=== PATIENT | male | born 1965 | race African-American/Black ===

== ENCOUNTER 2016-09-07 14:49 | Inpatient (IN) ==
[2016-09-07] MEDS ORDERED: SODIUM CHLORIDE 0.9% 1,000 ML IV STA ×2 (15:08→15:10)
[2016-09-07] MEDS ORDERED: HYDROmorphone 2 MG/1 ML VIAL IV STA (15:08)
[2016-09-07] MEDS ORDERED: DIPH/TET/ACEL PERT BOOSTER VACCINE 0.5 ML VIAL IM ONE ×2 (15:08→15:36)
[2016-09-07] MEDS ORDERED: ONDANSETRON 4 MG/2 ML VIAL IV STA (15:08)
[2016-09-07] MEDS ORDERED: cefTRIAXone 1,000 MG in SODIUM CHLORIDE 0.9% 100 ML IV STA (15:10)
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
[2016-09-07] MEDS ORDERED: cefTRIAXone 1,000 MG VIAL ONE (15:35)
[2016-09-07] MEDS ORDERED: ONDANSETRON 4 MG/2 ML VIAL ONE ×2 (15:35→17:30)
[2016-09-07] MEDS ORDERED: HYDROmorphone 2 MG/1 ML VIAL ONE (15:36)
--- NOTE | 2016-09-07 15:37 | CT Report ---
CT soft tissue neck w con Indication: Laceration. CT NECK WITH CONTRAST DLP: 168 mGy*cm. One or more of the following dose reduction techniques was used: Automated exposure control, adjustment of the mA and/or kV according the patient size, or use of iterative reconstruction techniques. Comparison: None Technique: Axial CT images of the neck were obtained with IV contrast. Omnipaque 350, none cc. Findings: Laceration along the left jawline is present. No active extravasation into the lacerated region identified although soft tissue swelling and subcutaneous emphysema is present. Unable to exclude involvement of left submandibular gland within the injury. Laceration appears superficial of the left jugular vein and external carotid branches. No radiopaque debris identified. Airways widely patent. Vocal cords are thickened and symmetric. Epiglottis is thin. Visualized sinuses and mastoid air cells are clear. Poor dentition noted with no teeth present. No fracture the facial bones or mandible. Temporal mandibular joint alignment is normal. Pulmonary apices appear clear. No superior mediastinal lymphadenopathy. Aortic arch is intact, bovine arch noted. Thyroid is homogeneous. Impression: Superficial soft tissue injury along the left jawline without extravasation identified. No underlying fracture. PROCEDURE INTERPRETED AT [facility] DEPARTMENT OF RADIOLOGY Final Report Signed by: Slick Jerry M.D.
[2016-09-07 15:38] LABS: Basophils % 0.8 % (0.0-0.8); Eosinophils % 0.3 % (0.00-10.9); Hematocrit 28.3 VOL% (42.0-52.0); Hemoglobin 9.9 GM/DL (14.0-18.0); Immature Granulocytes % 0.5 %; Immature Granulocytes Absolute 0.02 #; Lymphocytes # 1.9 10*3/uL (1.4-4.0); Lymphocytes % 48.6 % (21.2-54.2); Mean Corpuscular Hemoglobin 25 PG (27-34); Mean Corpuscular Volume 72.4 FL (87-102); Mean Platelet Volume 9.8 FL (9.6-12.0); Monocytes # 0.5 10*3/uL (0.11-0.8); Monocytes % 12.7 % (1.7-12.7); Neutrophils # 1.5 10*3/uL (1.4-7.4); Neutrophils % 37.1 % (38.7-73.9); Platelet Count 162 T/CUMM (130-400); Red Blood Count 3.91 MC/CUMM (3.8-5.5); Red Cell Distribution Width 14.3 % (9.3-17.3); White Blood Count 3.9 T/CUMM (4-12)
[2016-09-07 15:52] LABS: Albumin 3.8 G/DL (3.4-5.0); Bilirubin,Total 0.6 MG/DL (0.2-1.0); Calcium 9.1 MG/DL (8.5-10.1); Osmolality,Calculated 261.5 MOS/KG (273-304); Potassium 3.9 MMOL/L (3.5-5.1); Total Protein 7.3 G/DL (6.4-8.3)
[2016-09-07 16:40] LABS: Hypochromasia 1+; Lymphocytes 60 % (20-55); Metamyelocytes 1 %; Platelet Estimate Adequate; Polychromasia Few; Segmented Neutrophils 36 % (50-85); Total Cells Counted 100
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
[2016-09-07 17:04] LABS: Apearance,Urine CLEAR (Clear); Bacteria,Urine Occasional /HPF (Few); Bilirubin,Urine Negative (Negative); Blood, Urine Negative (Negative); Glucose,Urine (UA) Negative (Negative); Ketones,Urine Negative (Negative); Mucus,Urine Occasional /LPF (Occasional); Nitrite,Urine Negative (Negative); Protein,Urine Negative; Urine Color Straw (Yellow); Urine Specific Gravity 1.013 (1.001-1.035); Urine Urobilinogen < 2.0 EU/DL (0.2-1.0); WBC,Urine <1 /HPF (0-6)
[2016-09-07 17:22] LABS: Barbiturates Screen,Urine Negative (Negative); Benzodiazepines Screen,Urine Negative (Negative); Cannabinoid Screen,Urine Positive (Negative); Opiate Screen,Urine Negative (Negative); Phencyclidine Screen,Urine Negative (Negative)
[2016-09-07] MEDS ORDERED: LIDOCAINE 1%/EPI INJ 20 ML VIAL ONE (17:25)
[2016-09-07] MEDS ORDERED: ROCURONIUM 100 MG/10 ML VIAL IV ONE (17:30)
[2016-09-07] MEDS ORDERED: PHENYLEPHRINE 1 MG/10 ML SYRINGE IV ONE (17:30)
[2016-09-07] MEDS ORDERED: LIDOCAINE 1% 5 ML VIAL ONE (17:30)
[2016-09-07] MEDS ORDERED: PROPOFOL 200 MG/20 ML VIAL IV ONE (17:30)
[2016-09-07] MEDS ORDERED: SUCCINYLCHOLINE 200 MG/10 ML VIAL ONE (17:30)
[2016-09-07] MEDS ORDERED: MUPIROCIN 2% OINT 22 GM TUBE TOP ONE (18:23)
--- NOTE | 2016-09-07 18:44 | EKG Report ---
Stationary ECG Study [facility] ER Test Date: 09/07/2016 4:51:25 PM Pat Name: RODERICK BERGER Department: Room: EDAZIT Gender: M Detail Assembler: : 1965 Requested by: Osei Mercado Order Number: [id number] Reading MD: TOM SYKES Intervals [place] Rate: 65 P: 91 OK: 143 QRS: 91 QRSD: 95 T: 85 QT: 426 QTc: 438 Interpretive Statements SINUS RHYTHM BORDERLINE RIGHT AXIS DEVIATION Electronically Signed On 09-07-16 20:34:25 CDT by TOM SYKES [email or web address]
[2016-09-07] MEDS ORDERED: ACETAMINOPHEN 500 MG TABLET PO PRN (18:49)
[2016-09-07] MEDS ORDERED: KETOROLAC 15 MG/1 ML VIAL IV PRN (18:49)
[2016-09-07] MEDS ORDERED: diphenhydrAMINE 50 MG/1 ML VIAL IV PRN (18:49)
[2016-09-07] MEDS ORDERED: ONDANSETRON 4 MG/2 ML VIAL IV PRN (18:49)
[2016-09-07] MEDS ORDERED: hydrALAZINE 20 MG/1 ML VIAL ONE (19:03)
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
[2016-09-07] MEDS ORDERED: LACTATED RINGERS 2,000 ML IV ONE (19:07)
[2016-09-07] MEDS ORDERED: fentaNYL 100 MCG/2 ML VIAL ONE (19:07)
[2016-09-07] MEDS ORDERED: SEVOFLURANE 1 UNIT/15 MINUTE INH ONE (19:07)
[2016-09-07] MEDS ORDERED: MIDAZOLAM 2 MG/2 ML VIAL ONE (19:07)
--- NOTE | 2016-09-07 19:08 | Anesthesia Post-Op ---
Anesthesia Post OP - Post Ansesthetic Evaluation Patient seen in post op: Yes Resp: within normal limits CV: within normal limits Mental: within normal limits Temp: within normal limits [id number]-[id number]: within normal limits Nausea and Vomiting: within normal limits Pain: within normal limits
[2016-09-07] MEDS ORDERED: hydrALAZINE 20 MG/1 ML VIAL IV ONE (19:11)
[2016-09-07] MEDS: SULFAMETHOX/TRIMETHOPRIM 800-160 MG TABLET PO SCH (20:30)
[2016-09-07] MEDS ORDERED: MULTIVITAMIN INJ 10 ML in SODIUM CHLORIDE 0.9% 1,000 ML IV SCH (20:30)
[2016-09-07] MEDS: MUPIROCIN 2% OINT 22 GM TUBE TOP SCH (20:30)
[2016-09-08] MEDS ORDERED: cefTRIAXone 1,000 MG in SODIUM CHLORIDE 0.9% 100 ML IV SCH (03:00)
[2016-09-08 06:45] LABS: Basophils % 0.5 % (0.0-0.8); Hematocrit 26.2 VOL% (42.0-52.0); Immature Granulocytes % 0.5 %; Immature Granulocytes Absolute 0.03 #; Lymphocytes # 1.2 10*3/uL (1.4-4.0); Lymphocytes % 18.7 % (21.2-54.2); Mean Corpuscular HGB Conc 34.4 GM/DL (32-36); Mean Corpuscular Hemoglobin 26 PG (27-34); Mean Corpuscular Volume 75.1 FL (87-102); Mean Platelet Volume 9.7 FL (9.6-12.0); Monocytes # 0.7 10*3/uL (0.11-0.8); Monocytes % 10.1 % (1.7-12.7); Neutrophils # 4.6 10*3/uL (1.4-7.4); Neutrophils % 70.2 % (38.7-73.9); Platelet Count 137 T/CUMM (130-400); Red Blood Count 3.49 MC/CUMM (3.8-5.5); Red Cell Distribution Width 14.5 % (9.3-17.3); White Blood Count 6.5 T/CUMM (4-12)
[2016-09-08 06:52] VITALS: BP 125/72
[2016-09-08 07:23] LABS: Albumin 3.1 G/DL (3.4-5.0); Bilirubin,Total 1.1 MG/DL (0.2-1.0); Calcium 8.5 MG/DL (8.5-10.1); Osmolality,Calculated 267.8 MOS/KG (273-304); Potassium 4.3 MMOL/L (3.5-5.1); Total Protein 6.1 G/DL (6.4-8.3)
[2016-09-08] MEDS: SULFAMETHOX/TRIMETHOPRIM 800-160 MG TABLET PO SCH (08:01)
[2016-09-08] MEDS: MUPIROCIN 2% OINT 22 GM TUBE TOP SCH (08:03)
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
[2016-09-08] MEDS ORDERED: LORazepam 2 MG/1 ML VIAL IV PRN (08:36)
[2016-09-08] MEDS ORDERED: LISINOPRIL/HCTZ 20-25 MG TABLET PO SCH (09:00)
[2016-09-08] MEDS ORDERED: PANTOPRAZOLE 40 MG TABLET PO SCH (09:00)
[2016-09-08] MEDS ORDERED: METOPROLOL SUCCINATE XL 50 MG TABLET PO SCH (09:00)
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
== END 2016-09-08 10:45 | disposition home or self-care (01) | DRG 580 ==
LOC: EDUNIT# → EDBD → N.ED 14:49 → N.EDINP 16:22 → N.3E 19:45
PROVIDERS: ADMIT Otolaryngology; ATTEND Otolaryngology